=== PATIENT | male | born 1995 | race Caucasian/White ===

== ENCOUNTER → 2018-09-21 | Outpatient (CLI) | payer OTHER ==
[~2018-09-21] MED LIST: IOHEXOL 240 MG/ML 50ML VIAL. PO ONE; IOHEXOL 300 MG/ML 100ML VIAL. IV ONE; PRED20TA PO
--- NOTE | 2018-09-21 11:58 | KCIC ---
PQRS Compliance Statement: One or more of the following individualized dose reduction techniques were utilized for this examination: 1. Automated exposure control 2. Adjustment of the mA and/or kV according to patient size 3. Use of iterative reconstruction technique CT abdomen/pelvis with contrast 09/21/2018 10:30 AM INDICATION: Crohn's disease. Left-sided abdominal pain after having bowel movement. COMPARISON: None available TECHNIQUE: Multiple axial CT images of the abdomen and pelvis were obtained after the intravenous administration of 100 mL Omnipaque 300. Coronal and sagittal reformats are provided. FINDINGS: Lung bases are clear. Heart size is within normal limits. Liver, spleen, bilateral adrenal glands, pancreas and kidneys are normal in appearance. No hydronephrosis or renal calculi. No suspicious renal mass. Gallbladder is surgically absent. There is circumferential wall thickening with mucosal hyperenhancement and mural edema involving the colon from the splenic flexure to the anus. Mild pericolonic inflammatory changes are present. Oral contrast was administered. Opacified bowel loops since her normal mucosal fold pattern. Appendix is normal in appearance. Urinary bladder is within normal limits given degree of distention. Prostate and seminal vesicles appear normal. No suspicious osseous abnormality is identified. Abdominal aorta is normal in course and caliber. There are no pathologically enlarged lymph nodes in abdomen and pelvis. There is no free fluid or free intraperitoneal air. IMPRESSION: 1. There is a long segment of colon extending from the splenic flexure to the anus with mucosal hyperenhancement and mural edema with pericolonic inflammatory changes suggestive of a colitis of infectious/inflammatory etiology. Findings are atypical for ischemic colitis. No pericolonic fluid collection or perforation is identified. Electronically signed by: Renata Beauchamp MD (09/21/2018 11:55 AM) [facility] [id number]
== END | disposition home or self-care (01) ==
LOC: KCIC CT 09:44
PROVIDERS: ATTEND Internal Medicine Gastroenterology
DX: K50.90 Crohn's disease, unspecified, without complications (principal); Z90.49 Acquired absence of other specified parts of digestive tract
CPT/HCPCS: 74177; Q9966; Q9967